=== PATIENT | female | born 2000 | race Caucasian/White ===

== ENCOUNTER 2023-07-04 07:09 | Emergency (ER) | payer OTHER ==
[2023-07-04 07:23] VITALS: TEMP 99.4
--- NOTE | 2023-07-04 07:51 | ERPHSYRPT ---
- History of Present Illness Time Seen by Provider: 07/04/23 07:35 Source: patient, family Patient Subjective Stated Complaint: Pt states "About three days ago I started to have rib pain and get a little short of breath. I have a hx of blood clots and I was taken off my xarelto a couple of months ago and I am afraid I might have another blood clot." Triage Nursing Assessment: Pt presented alert and oriented X 3, skin pwd. Pt ambulates with an upright steady gait, able to speak in clear full sentences. Pt resting comfortably on the bed. Physician History: This is a morbidly obese 23-year-old white female patient who was diagnosed with bilateral lower lobe pulmonary emboli and was placed on Xarelto. Per her report, they stopped the Xarelto in January or February 2023. They decided to restart it and then, secondary to vaginal bleeding with an IUD in place, they stopped the Xarelto again in May. Additional, independent history was provided by the patient's significant other. 3 days ago, patient began having mild shortness of air, cough and bilateral lower rib pain. These symptoms are similar to those symptoms that were present when she was diagnosed with a pulmonary embolus. She is concerned that the pulmonary emboli have recur red/returned. Patient has a history of hypertension, anxiety/depression, chronic anemia and pituitary tumor. Patient denies anterior chest pain. She has no abdominal pain. Patient's monitor rhythm is within normal limits and shows a pulse of 91 bpm. Her room air oxygen saturation level is 99%. Timing/Duration: day(s) (3) Cough Quality/Degree: mild (Nonproductive) Possible Cause: occasional episodes Modifying Factors: Improves With: coughing Associated Symptoms: cough, shortness of breath Allergies/Adverse Reactions: heparin Allergy (Severe, Verified 05/08/23 11:52) Anaphylactic Reaction vancomycin Allergy (Intermediate, Verified 05/08/23 11:52) Hives Home Medications: Ferrous Sulfate 325 mg [Feosol 325 mg] 325 mg PO HS 05/06/23 [History] Losartan/Hydrochlorothiazide [Hyzaar 50-12.5 Tablet] 1 each PO HS 05/06/23 [History] carvediloL [Coreg] 25 mg PO BID 05/06/23 [History] clonazePAM [Clonazepam] 1 mg PO BIDPRN PRN 05/06/23 [History] Aspirin 81 gm Chew [Baby Aspirin 81 mg Chew] 81 mg PO BID 07/04/23 [History] Hx Tetanus, Diphtheria Vaccination/Date Given: No Hx Influenza Vaccination/Date Given: No Hx Pneumococcal Vaccination/Date Given: No Immunizations Up to Date: No Travel Risk - International Travel Have you traveled outside of the country in past 3 weeks: No - Coronavirus Screening Are you exhibiting any of the following symptoms?: Yes Symptoms: Cough: New Onset Close contact with a COVID-19 positive Pt in past 14-21 Days: No - Vaccine Status Have you recieved a Covid-19 vaccination: Yes 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: [employer] - Vaccination Dates Date of 2cond Vaccination (if applicable): did not get - Review of Systems Constitutional: No Symptoms Eyes: No Symptoms Ears, Nose, & Throat: No Symptoms Respiratory: Cough, Dyspnea (Mild) Cardiac: No Symptoms Abdominal/Gastrointestinal: No Symptoms Genitourinary Symptoms: No Symptoms Musculoskeletal: No Symptoms Skin: No Symptoms Neurological: No Symptoms Psychological: No Symptoms Endocrine: No Symptoms Hematologic/Lymphatic: No Symptoms Immunological/Allergic: No Symptoms All Other Systems: Reviewed and Negative - Past Medical History Pertinent Past Medical History: Yes Neurological History: No Pertinent History ENT History: No Pertinent History Cardiac History: Hypertension, No Pertinent History Respiratory History: Pulmonary Embolism Endocrine Medical History: Other Musculoskeletal History: No Pertinent History, Other GI Medical History: No Pertinent History History: No Pertinent History Psycho-Social History: Depression, Anxiety Female Reproductive Disorders: Menstrual Problems, Abnormal Uterine Bleeding Other Medical History: been on period for 8 months, pituatary tumor, aris PE - Past Surgical History Past Surgical History: Yes Neuro Surgical History: No Pertinent History Cardiac: No Pertinent History Respiratory: No Pertinent History Gastrointestinal: No Pertinent History Genitourinary: No Pertinent History Musculoskeletal: No Pertinent History, Orthopedic Surgery Female Surgical History: No Pertinent History Other Surgical History: spinal fusion - Social History Smoking Status: Never smoker Exposure to second hand smoke: No Drug Use: none Patient Lives Alone: No - Female History Hx Last Menstrual Period: IUD Hx Now: No - Nursing Vital Signs Nursing Vital Signs: Initial Vital Signs Temperature 99.4 F 07/04/23 07:18 Pulse Rate 99 H 07/04/23 07:18 Respiratory Rate 07/04/23 07:18 Blood Pressure 169/109 11/22/23 07:18 O2 Sat by Pulse Oximetry 99 07/04/23 07:18 Pain Scale Pain Intensity 0 - Physical Exam General Appearance: no apparent distress, alert, anxiety, obese Eye Exam: PERRL/EOMI Ears, Nose, Throat Exam: normal ENT inspection, moist mucous membranes Neck Exam: normal inspection, non-tender, supple, full range of motion Respiratory Exam: normal breath sounds, lungs clear, airway intact, No chest tenderness, No respiratory distress Cardiovascular Exam: regular rate/rhythm, normal heart sounds, normal peripheral pulses Gastrointestinal/Abdomen Exam: soft, normal bowel sounds, No tenderness Pelvic Exam: not done Rectal Exam: not done Back Exam: normal inspection, normal range of motion, No CVA tenderness, No vertebral tenderness Extremity Exam: normal inspection, normal range of motion, pelvis stable Neurologic Exam: alert, oriented x 3, cooperative, 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 assistant II-XII nml as tested, nml cerebellar function, nml station & gait, other (Patient is anxious) Skin Exam: normal color, warm, dry Lymphatic Exam: No adenopathy SpO2 Interpretation: normal SpO2: 99 O2 Delivery: Room Air - Course Nursing assessment & vital signs reviewed: Yes EKG Interpreted by Me: RATE (81), Sinus Rhythm, NORMAL AXIS, NORMAL INTERVALS, NORMAL QRS, NORMAL ST-T, Other (No acute ischemic changes on today's twelve-lead EKG) Ordered Tests: Active Orders 24 hr Category Date Time Status EKG-ER Only STAT Care 07/04/23 07:51 Active IV Insertion STAT Care 07/04/23 07:51 Active CHEST WITH CONTRAST [CT] Stat Exams 07/04/23 07:52 Completed CBC W DIFF Stat Lab 07/04/23 10:04 Completed CMP Stat Lab 07/04/23 10:04 Completed HCG QUALITATIVE, SERUM Stat Lab 07/04/23 10:04 Completed NT PRO BNPII Stat Lab 07/04/23 10:04 Completed PROTIME WITH INR Stat Lab 07/04/23 10:04 Completed TROPONIN Q4H Lab 07/04/23 10:04 Completed TROPONIN Q4H Lab 07/04/23 14:00 Ordered TROPONIN Q4H Lab 07/04/23 18:00 Ordered Medication Summary Discontinued Medications Generic Name Dose Route Start Last Admin Trade Name Freq PRN Reason Stop Dose Admin Sodium Chloride 500 mls @ 500 mls/hr 07/04/23 07:53 07/04/23 10:41 Sodium Chloride 0.9% 500 Ml IV 07/04/23 08:52 Infused .Q1H ONE Infusion Sodium Chloride Confirm 07/04/23 09:23 Sodium Chloride 0.9% 500 Ml Administered 07/04/23 09:24 Dose 500 mls @ ud IV .STK-MED ONE Lidocaine HCl Confirm 07/04/23 09:29 Lidocaine - Mpf 2% 5 Ml Vial Administered 07/04/23 09:30 Dose 5 ml .ROUTE .STK-MED ONE Lab/Rad Data: Laboratory Result Diagrams 07/04/23 10:04 07/04/23 10:04 Laboratory Results 07/04/23 07/04/23 07/04/23 Range/Units 10:04 10:04 10:04 WBC (4.0-10.5) x10^3/uL RBC (4.1-5.4) x10^6/uL Hgb (12.0-16.0) g/dL Hct (35-47) % MCV (78-100) fL MCH (26-32) pg MCHC (32-36) g/dL RDW (11.5-14.0) % Plt Count (150-450) x10^3/uL MPV (7.5-11.0) fL Gran % (36.0-66.0) % Immature Gran % (Auto) (0.00-0.4) % Nucleat RBC Rel Count (0.00-0.1) % Eos # (Auto) (0-0.5) x10^3/uL Immature Gran # (Auto) (0.00-0.03) x10^3u/L Absolute Lymphs (auto) (1.0-4.6) x10^3/uL Absolute Monos (auto) (0.0-1.3) x10^3/uL Absolute Nucleated RBC (0.00-0.01) x10^3u/L Lymphocytes % (24.0-44.0) % Monocytes % (0.0-12.0) % Eosinophils % (0.00-5.0) % Basophils % (0.0-0.4) % Absolute Granulocytes (1.4-6.9) x10^3/uL Basophils # (0-0.4) x10^3/uL PT 10.9 (9.4-12.5) SECONDS INR 1.00 (0.8-3.0) Sodium (137-145) mmol/L Potassium (3.5-5.1) mmol/L Chloride (98-107) mmol/L Carbon Dioxide (22-30) mmol/L Anion Gap (5-15) MEQ/L BUN (7-17) mg/dL Creatinine (0.52-1.04) mg/dL Estimated GFR ML/MIN Glucose (74-106) mg/dL Calcium (8.4-10.2) mg/dL Total Bilirubin (0.2-1.3) mg/dL AST (14-36) U/L ALT (0-35) U/L Alkaline Phosphatase (38-126) U/L Troponin I < 0.012 (0.000-0.034) ng/mL NT-Pro-B Natriuret Pep (<300) pg/mL Serum Total Protein (6.3-8.2) g/dL Albumin (3.5-5.0) g/dL Serum HCG, Qual NEGATIVE (NEGATIVE) Influenza Type A Ag (NEGATIVE) Influenza Type B Ag (NEGATIVE) RSV (PCR) (NEGATIVE) SARS-CoV-2 (PCR) (NEGATIVE) 07/04/23 07/04/23 07/04/23 Range/Units 10:04 10:04 08:15 WBC 11.9 H (4.0-10.5) x10^3/uL RBC 3.89 L (4.1-5.4) x10^6/uL Hgb 10.5 L (12.0-16.0) g/dL Hct 33.7 L (35-47) % MCV 86.6 (78-100) fL MCH 27.0 (26-32) pg MCHC 31.2 L (32-36) g/dL RDW 15.1 H (11.5-14.0) % Plt Count 333 (150-450) x10^3/uL MPV 8.5 (7.5-11.0) fL Gran % 71.6 H (36.0-66.0) % Immature Gran % (Auto) 0.3 (0.00-0.4) % Nucleat RBC Rel Count 0.0 (0.00-0.1) % Eos # (Auto) 0.19 (0-0.5) x10^3/uL Immature Gran # (Auto) 0.03 (0.00-0.03) x10^3u/L Absolute Lymphs (auto) 2.64 (1.0-4.6) x10^3/uL Absolute Monos (auto) 0.48 (0.0-1.3) x10^3/uL Absolute Nucleated RBC 0.00 (0.00-0.01) x10^3u/L Lymphocytes % 22.2 L (24.0-44.0) % Monocytes % 4.0 (0.0-12.0) % Eosinophils % 1.6 (0.00-5.0) % Basophils % 0.3 (0.0-0.4) % Absolute Granulocytes 8.53 H (1.4-6.9) x10^3/uL Basophils # 0.04 (0-0.4) x10^3/uL PT (9.4-12.5) SECONDS INR (0.8-3.0) Sodium 133 L (137-145) mmol/L Potassium 4.1 (3.5-5.1) mmol/L Chloride 104 (98-107) mmol/L Carbon Dioxide 21 L (22-30) mmol/L Anion Gap 12.4 (5-15) MEQ/L BUN 10 (7-17) mg/dL Creatinine 0.40 L (0.52-1.04) mg/dL Estimated GFR 141.7 ML/MIN Glucose 95 (74-106) mg/dL Calcium 8.9 (8.4-10.2) mg/dL Total Bilirubin 0.30 (0.2-1.3) mg/dL AST 30 (14-36) U/L ALT 36 H (0-35) U/L Alkaline Phosphatase 69 (38-126) U/L Troponin I (0.000-0.034) ng/mL NT-Pro-B Natriuret Pep 86.2 (<300) pg/mL Serum Total Protein 7.6 (6.3-8.2) g/dL Albumin 3.8 (3.5-5.0) g/dL Serum HCG, Qual (NEGATIVE) Influenza Type A Ag NEGATIVE (NEGATIVE) Influenza Type B Ag NEGATIVE (NEGATIVE) RSV (PCR) NEGATIVE (NEGATIVE) SARS-CoV-2 (PCR) NEGATIVE (NEGATIVE) - Progress Progress: re-examined Air Movement: good Progress Note: 07/04/23 08:39 This patient's medical issue is 1 of moderate complexity. The level complex in the workup performed based on review of the patient's past medical history, review of the patient's medication list, review of patient's drug allergy list, history of present illness and physical findings on examination. The workup in this patient includes placement of intravenous line, CBC, CMP, PT/INR, CT scan of the chest with contrast to evaluate for pulmonary embolus. We also performed a BNP and troponin level and twelve-lead EKG. 07/04/23 12:33 I reviewed and interpreted the patient's laboratory data results. There is no evidence of any acute, emergent findings. CT scan of the chest with contrast was interpreted by radiologist and I reviewed the impression. There is no evidence of any pulmonary embolus. This was comp ared to the last 3 CT scans of the chest that were done this year. There are no other acute cardiopulmonary processes. Patient was informed that she needs to be careful with the number of radiograph ic studies that she is exposed to. Counseled pt/family regarding: lab results, diagnosis, need for follow-up, rad results Medical Desision Making - Independent Historian Additional History obtained from: Relative/friend - Diagnostic Testing Diagnostic test were ordered, analyzed, and reviewed by me: Yes Radiological Interpretation: Reviewed by me, Teleradiologist Report - Risk of complications Minimal Risk: Minimal risk of morbidity - Departure Departure Disposition: Home Clinical Impression: Rib pain, Shortness of breath Condition: Stable Critical Care Time: No Referrals: MANUEL LEMUS PA [Primary Care Provider] - Follow up/PCP as directed Additional Instructions: Be aware that you have had a number of CAT scans of the chest within approximately 11 months. Follow-up with your primary care provider for further evaluation management. Continue all your medications as prescribed.
[2023-07-04] MEDS ORDERED: Sodium Chloride 0.9% 500 ML 500 ML IV ONE ×2 (07:53→09:23)
[2023-07-04 08:58] LABS: INFLUENZA A NEGATIVE (NEGATIVE); INFLUENZA B NEGATIVE (NEGATIVE); RESPIRATORY SYNCTIAL VIRUS NEGATIVE (NEGATIVE); SARS-CoV-2 Xpert Express NEGATIVE (NEGATIVE)
[2023-07-04] MEDS ORDERED: Xylocaine-Mpf 2% 5 Ml Vial ONE (09:29)
[2023-07-04 10:05] LABS: Absolute Neutrophil Ct (ANC) 8.53 x10^3/uL (1.4-6.9); BASOPHIL % 0.3 % (0.0-0.4); Basophil (Absolute #) 0.04 x10^3/uL (0-0.4); Eosinophil % 1.6 % (0.00-5.0); Eosinophil (Absolute #) 0.19 x10^3/uL (0-0.5); Hematocrit 33.7 % (35-47); Hemoglobin 10.5 g/dL (12.0-16.0); IMMATURE GRAN # 0.03 x10^3u/L (0.00-0.03); IMMATURE GRAN % 0.3 % (0.00-0.4); Lymphocyte (Absolute #) 2.64 x10^3/uL (1.0-4.6); Lymphocytes % 22.2 % (24.0-44.0); Mean Cell Volume 86.6 fL (78-100); Mean Corpuscular Hgb Concent. 31.2 g/dL (32-36); Mean Platelet Volume 8.5 fL (7.5-11.0); Monocyte (Absolute #) 0.48 x10^3/uL (0.0-1.3); Neutrophil % 71.6 % (36.0-66.0); Platelet Count 333 x10^3/uL (150-450); Red Blood Count 3.89 x10^6/uL (4.1-5.4); Red Cell Distribution Width 15.1 % (11.5-14.0); White Blood Count 11.9 x10^3/uL (4.0-10.5)
[2023-07-04 10:23] LABS: HCG SERUM TEST NEGATIVE (NEGATIVE); PROTIME 10.9 SECONDS (9.4-12.5)
[2023-07-04 10:34] LABS: ALBUMIN 3.8 g/dL (3.5-5.0); ANION GAP 12.4 MEQ/L (5-15); BILIRUBIN,TOTAL 0.3 mg/dL (0.2-1.3); Calcium 8.9 mg/dL (8.4-10.2); Creatinine 1 0.4 mg/dL (0.52-1.04); EST GLOMERULAR FILTRATION RATE 141.7 ML/MIN; NT PRO BNPII 86.2 pg/mL (<300); Potassium 4.1 mmol/L (3.5-5.1); Total Protein 7.6 g/dL (6.3-8.2)
[2023-07-04 12:04] VITALS: BP 129/80
--- NOTE | 2023-07-04 12:19 | XRAY ---
Indication: Cough. Chest pain. History PE. Multiple contiguous axial images obtained through the chest using 100 cc Isovue 370 contrast and PE protocol. Comparison: January 21, January 30, and May 06, 2023. Adequate opacification of the pulmonary arteries including lobar and segmental branches. No pulmonary embolus. Heart not enlarged. Aorta is normal in course and caliber. No pathologic mediastinal/hilar lymphadenopathy. Lungs demonstrates minimal dependent atelectasis. No suspicious pulmonary mass/nodule, infiltrate, effusion, or pneumothorax. Bony thorax intact. Limited upper abdomen again demonstrates fatty liver. Impression: No change compared to last 3 CT PE exams of this year. Continued negative pulmonary embolus. No new/acute cardiopulmonary abnormalities. Again incidental fatty liver.
[2023-07-04 13:02] VITALS: PULSE 93; RESP 24; O2SAT 96
== END 2023-07-04 13:08 | disposition home or self-care (01) ==
LOC: ED 07:09
DX: R07.81 Pleurodynia (principal); R06.02 Shortness of breath; R05.1 Acute cough; I10 Essential (primary) hypertension; Z79.899 Other long term (current) drug therapy; Z86.711 Personal history of pulmonary embolism
CPT/HCPCS: 0241U; 36415; 71260; 80053; 83880; 84484; 84703; 85025; 85610; 93005; 99284

== ENCOUNTER 2023-10-17 14:37 | Emergency (ER) | payer OTHER ==
--- NOTE | 2023-10-17 14:52 | ERPHSYRPT ---
- History of Present Illness Time Seen by Provider: 10/17/23 14:52 Historian: patient, family Exam Limitations: no limitations Patient Subjective Stated Complaint: chest pain and back pain between my shoulder blades Triage Nursing Assessment: Pt A&O X 3. Ambulated to room without difficulty. Respirations unlabored. Lung sounds clear throughout. Heart sounds regular S1 S2 present. Pt tearful. Physician History: This is a morbidly obese 23-year-old white female patient who presents with relatively acute onset of sharp stabbing chest pain that is localized in the center of her chest and radiates straight through to her back between her shoulder blades. Today, there were the same symptoms and associated left rib pa in. She was diagnosed with COVID in September 2023. She has a residual cough but no hemoptysis. Patient has no documented coronary artery disease. Patient has been diagnosed in the past with a pulmonary embolus and was on Xarelto for 3 years. However, she was having some genitourinary bleeding with menstruation and therefore her physician stopped the Xarelto per her report. Patient has a history of anxiety, hypertension and anemia Timing/Duration: yesterday Activities at Onset: none Quality: sharpness, stabbing Location: substernal, central Chest Pain Radiation: back Severity of Pain-Max: mild (To moderate) Severity of Pain-Current: mild (To moderate) Modifying Factors: Improves With: breathing Associated Symptoms: cough (Mild), hurts to breathe Prior Chest Pain/Cardiac Workup: pulmonary embolism Nitro Today/Relief: no nitro taken today Aspirin Treatment Today: 81 mg x 1, provided at home Allergies/Adverse Reactions: heparin Allergy (Severe, Verified 10/17/23 14:42) Anaphylactic Reaction vancomycin Allergy (Intermediate, Verified 10/17/23 14:42) Hives Home Medications: Ferrous Sulfate 325 mg [Feosol 325 mg] 325 mg PO HS 05/06/23 [History] Losartan/Hydrochlorothiazide [Hyzaar 50-12.5 Tablet] 1 each PO HS 05/06/23 [History] carvediloL [Coreg] 25 mg PO BID 05/06/23 [History] clonazePAM [Clonazepam] 1 mg PO BIDPRN PRN 05/06/23 [History] Aspirin 81 gm Chew [Baby Aspirin 81 mg Chew] 81 mg PO BID 07/04/23 [H istory] Hx Tetanus, Diphtheria Vaccination/Date Given: No Hx Influenza Vaccination/Date Given: No Hx Pneumococcal Vaccination/Date Given: No Travel Risk - International Travel Have you traveled outside of the country in past 3 weeks: No - Coronavirus Screening Are you exhibiting any of the following symptoms?: No Close contact with a COVID-19 positive Pt in past 14-21 Days: No - Vaccine Status Have you recieved a Covid-19 vaccination: Yes 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: [employer] - Vaccination Dates Date of 2cond Vaccination (if applicable): did not get - Review of Systems Constitutional: No Symptoms Eyes: No Symptoms Ears, Nose, & Throat: No Symptoms Respiratory: No Symptoms Cardiac: Chest Pain Abdominal/Gastrointestinal: No Symptoms Genitourinary Symptoms: No Symptoms Musculoskeletal: No Symptoms Skin: No Symptoms Neurological: No Symptoms Psychological: No Symptoms, Anxiety Endocrine: No Symptoms Hematologic/Lymphatic: No Symptoms Immunological/Allergic: No Symptoms All Other Systems: Reviewed and Negative - Past Medical History Pertinent Past Medical History: Yes Neurological History: No Pertinent History ENT History: No Pertinent History Cardiac History: Hypertension, No Pertinent History Respiratory History: Pulmonary Embolism Endocrine Medical History: Other Musculoskeletal History: No Pertinent History, Other GI Medical History: No Pertinent History History: No Pertinent History Psycho-Social History: Depression, Anxiety Female Reproductive Disorders: Menstrual Problems, Abnormal Uterine Bleeding Other Medical History: been on period for 8 months, pituatary tumor, aris PE - Past Surgical History Past Surgical History: Yes Neuro Surgical History: No Pertinent History Cardiac: No Pertinent History Respiratory: No Pertinent History Gastrointestinal: No Pertinent History Genitourinary: No Pertinent History Musculoskeletal: No Pertinent History, Orthopedic Surgery Female Surgical History: No Pertinent History Other Surgical History: spinal fusion - Social History Smoking Status: Never smoker Exposure to second hand smoke: No Drug Use: none Patient Lives Alone: No - Female History Hx Now: No - Nursing Vital Signs Nursing Vital Signs: Initial Vital Signs Pulse Rate 88 10/17/23 14:49 Respiratory Rate 25 H 10/17/23 14:49 Blood Pressure 135/97 10/17/23 14:49 O2 Sat by Pulse Oximetry 97 10/17/23 14:49 Pain Scale Pain Intensity 3 - Physical Exam General Appearance: no apparent distress, alert, anxiety Eye Exam: PERRL/EOMI, eyes nml inspection Ears, Nose, Throat Exam: normal ENT inspection, moist mucous membranes Neck Exam: normal inspection, non-tender, supple, full range of motion Respiratory Exam: normal breath sounds, chest tenderness, lungs clear, respiratory distress, airway intact Cardiovascular Exam: regular rate/rhythm, normal heart sounds, normal peripheral pulses Gastrointestinal/Abdomen Exam: soft, normal bowel sounds, No tenderness Pelvic Exam: not done Rectal Exam: not done Back Exam: normal inspection, normal range of motion, No CVA tenderness, No vertebral tenderness Extremity Exam: normal inspection, normal range of motion, pelvis stable Neurologic Exam: alert, oriented x 3, cooperative, 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 nml as tested, nml cerebellar function, nml station & gait, sensation nml Skin Exam: normal color, warm, dry Lymphatic Exam: No adenopathy SpO2 Interpretation: normal O2 Delivery: Room Air - Course Nursing assessment & vital signs reviewed: Yes EKG Interpreted by Me: RATE ([id number]), Sinus Rhythm, NORMAL AXIS, NORMAL INTERVALS, NORMAL QRS, NORMAL ST-T, Other (No acute ischemic changes on today's twelve-lead EKG.) Ordered Tests: Active Orders 24 hr Category Date Time Status Bag Turner STAT Care 10/17/23 15:09 Active EKG-ER Only STAT Care 10/17/23 15:09 Active Pulse Oximetry (ED) STAT Care 10/17/23 15:09 Active CHEST WITH CONTRAST [CT] Stat Exams 10/17/23 15:29 Completed CBC W DIFF Stat Lab 10/17/23 15:09 Completed CMP Stat Lab 10/17/23 15:20 Completed D-DIMER QUANTITATIVE Stat Lab 10/17/23 15:20 Completed HCG QUALITATIVE, SERUM Stat Lab 10/17/23 15:20 Completed TROPONIN Q4H Lab 10/17/23 15:20 Completed TROPONIN Q4H Lab 10/17/23 19:15 Ordered TROPONIN Q4H Lab 10/17/23 23:15 Ordered Medication Summary Generic Name Dose Route Start Last Admin Trade Name Freq PRN Reason Stop Dose Admin Sodium Chloride 500 mls @ 500 mls/hr 10/17/23 15:59 10/17/23 16:12 Sodium Chloride 0.9% 500 Ml IV 10/17/23 16:58 500 mls/hr .Q1H ONE Administration Discontinued Medications Generic Name Dose Route Start Last Admin Trade Name Freq PRN Reason Stop Dose Admin Aspirin 324 mg 10/17/23 15:09 10/17/23 15:42 Aspirin 81 Mg Tab.Chew PO 10/17/23 15:10 324 mg STAT ONE Administration Aspirin Confirm 10/17/23 15:41 Aspirin 81 Mg Tab.Chew Administered 10/17/23 15:42 Dose 324 mg .ROUTE .STK-MED ONE Sodium Chloride Confirm 10/17/23 16:10 Sodium Chloride 0.9% 500 Ml Administered 10/17/23 16:11 Dose 500 mls @ ud IV .[employer]-MED ONE Lab/Rad Data: Laboratory Result Diagrams 10/17/23 15:09 10/17/23 15:20 Laboratory Results 10/17/23 10/17/23 10/17/23 Range/Units 15:20 15:20 15:20 WBC (4.0-10.5) x10^3/uL RBC (4.1-5.4) x10^6/uL Hgb (12.0-16.0) g/dL Hct (35-47) % MCV (78-100) fL MCH (26-32) pg MCHC (32-36) g/dL RDW (11.5-14.0) % Plt Count (150-450) x10^3/uL MPV (7.5-11.0) fL Gran % (36.0-66.0) % Immature Gran % (Auto) (0.00-0.4) % Nucleat RBC Rel Count (0.00-0.1) % Eos # (Auto) (0-0.5) x10^3/uL Immature Gran # (Auto) (0.00-0.03) x10^3u/L Absolute Lymphs (auto) (1.0-4.6) x10^3/uL Absolute Monos (auto) (0.0-1.3) x10^3/uL Absolute Nucleated RBC (0.00-0.01) x10^3u/L Lymphocytes % (24.0-44.0) % Monocytes % (0.0-12.0) % Eosinophils % (0.00-5.0) % Basophils % (0.0-0.4) % Absolute Granulocytes (1.4-6.9) x10^3/uL Basophils # (0-0.4) x10^3/uL D-Dimer 0.22 (0.0-0.50) mg/L Sodium (135-145) mmol/L Potassium (3.5-5.1) mmol/L Chloride (98-107) mmol/L Carbon Dioxide (22-30) mmol/L Anion Gap (5-15) MEQ/L BUN (7-17) mg/dL Creatinine (0.52-1.04) mg/dL Estimated GFR ML/MIN Glucose (74-106) mg/dL Calcium (8.4-10.2) mg/dL Total Bilirubin (0.2-1.3) mg/dL AST (14-36) U/L ALT (0-35) U/L Alkaline Phosphatase (38-126) U/L Troponin I < 0.012 (0.000-0.034) ng/mL Serum Total Protein (6.3-8.2) g/dL Albumin (3.5-5.0) g/dL Serum HCG, Qual NEGATIVE (NEGATIVE) 10/17/23 10/17/23 Range/Units 15:20 15:09 WBC 11.5 H (4.0-10.5) x10^3/uL RBC 4.36 (4.1-5.4) x10^6/uL Hgb 11.6 L (12.0-16.0) g/dL Hct 37.1 (35-47) % MCV 85.1 (78-100) fL MCH 26.6 (26-32) pg MCHC 31.3 L (32-36) g/dL RDW 16.3 H (11.5-14.0) % Plt Count 333 (150-450) x10^3/uL MPV 8.7 (7.5-11.0) fL Gran % 62.5 (36.0-66.0) % Immature Gran % (Auto) 0.4 (0.00-0.4) % Nucleat RBC Rel Count 0.0 (0.00-0.1) % Eos # (Auto) 0.21 (0-0.5) x10^3/uL Immature Gran # (Auto) 0.05 H (0.00-0.03) x10^3u/L Absolute Lymphs (auto) 3.36 (1.0-4.6) x10^3/uL Absolute Monos (auto) 0.66 (0.0-1.3) x10^3/uL Absolute Nucleated RBC 0.00 (0.00-0.01) x10^3u/L Lymphocytes % 29.2 (24.0-44.0) % Monocytes % 5.7 (0.0-12.0) % Eosinophils % 1.8 (0.00-5.0) % Basophils % 0.4 (0.0-0.4) % Absolute Granulocytes 7.19 H (1.4-6.9) x10^3/uL Basophils # 0.05 (0-0.4) x10^3/uL D-Dimer (0.0-0.50) mg/L Sodium 138 (135-145) mmol/L Potassium 4.1 (3.5-5.1) mmol/L Chloride 101 (98-107) mmol/L Carbon Dioxide 30 (22-30) mmol/L Anion Gap 11.5 (5-15) MEQ/L BUN 16 (7-17) mg/dL Creatinine 0.60 (0.52-1.04) mg/dL Estimated GFR 128.5 ML/MIN Glucose 78 (74-106) mg/dL Calcium 9.1 (8.4-10.2) mg/dL Total Bilirubin 0.30 (0.2-1.3) mg/dL AST 32 (14-36) U/L ALT 41 H (0-35) U/L Alkaline Phosphatase 70 (38-126) U/L Troponin I (0.000-0.034) ng/mL Serum Total Protein 8.1 (6.3-8.2) g/dL Albumin 4.1 (3.5-5.0) g/dL Serum HCG, Qual (NEGATIVE) - Progress Progress: improved, re-examined Air Movement: good Progress Note: 10/17/23 15:58 This patient's medical issue is 1 of moderate complexity. The level of complexity and the workup performed is based on review of the patient's past medical history, review the patient's medication list, review of patient drug allergy list, history of present illness and physical findings on examination. The workup includes placement of intravenous line, infusion of normal saline solution, CBC, CMP, PT/INR, chest CT with contrast to evaluate for pulmonary embolism,. 10/17/23 16:56 I interpreted the patient's laboratory data results. The patient has no evidence for any acute, emergent medical issues. The CT scan of the chest with contrast was interpreted by the radiologist and I reviewed the impression. There is no evidence of any pulmonary embolus. There is no new or acute intrathoracic abnormality. This patient has had 4 CT scan of the chest with contrast within the last year to year and a half. However, patient does have a significant history of pulmonary embolus and is morbidly obese and is a set up for the possibility of recurrence. However, I will discuss with the patient about the number of CAT scans she has had in the amount of exposure to radiation from the CAT scans. I think we can safely follow the D-dimer levels since they have been normal with these last for normal CT scan of the chest with contrast. Blood Culture(s) Obtained: No Antibiotics given: No Counseled pt/family regarding: lab results, diagnosis, need for follow-up, rad results Medical Desision Making - Diagnostic Testing Diagnostic test were ordered, analyzed, and reviewed by me: Yes Radiological Interpretation: Reviewed by me, Teleradiologist Report - Risk of complications Low Risk: Low risk of morbidity from additional dx testing or treatment - Departure Departure Disposition: Home Clinical Impression: Nonspecific chest pain Condition: Stable Critical Care Time: No Referrals: MANUEL LEMUS PA [Primary Care Provider] - Follow up/PCP as directed Additional Instructions: Continue daily aspirin. Take your medication as prescribed. Call your primary care provider tomorrow, 10/18/2023 to make arranges for further evaluation management within the next 3 to 5 days.
[2023-10-17 15:22] LABS: Absolute Neutrophil Ct (ANC) 7.19 x10^3/uL (1.4-6.9); BASOPHIL % 0.4 % (0.0-0.4); Basophil (Absolute #) 0.05 x10^3/uL (0-0.4); Eosinophil % 1.8 % (0.00-5.0); Eosinophil (Absolute #) 0.21 x10^3/uL (0-0.5); Hematocrit 37.1 % (35-47); Hemoglobin 11.6 g/dL (12.0-16.0); IMMATURE GRAN # 0.05 x10^3u/L (0.00-0.03); IMMATURE GRAN % 0.4 % (0.00-0.4); Lymphocyte (Absolute #) 3.36 x10^3/uL (1.0-4.6); Lymphocytes % 29.2 % (24.0-44.0); Mean Cell Volume 85.1 fL (78-100); Mean Corpuscular Hemoglobin 26.6 pg (26-32); Mean Corpuscular Hgb Concent. 31.3 g/dL (32-36); Mean Platelet Volume 8.7 fL (7.5-11.0); Monocyte (Absolute #) 0.66 x10^3/uL (0.0-1.3); Monocytes % 5.7 % (0.0-12.0); Neutrophil % 62.5 % (36.0-66.0); Platelet Count 333 x10^3/uL (150-450); Red Blood Count 4.36 x10^6/uL (4.1-5.4); Red Cell Distribution Width 16.3 % (11.5-14.0); White Blood Count 11.5 x10^3/uL (4.0-10.5)
[2023-10-17 15:33] LABS: HCG SERUM TEST NEGATIVE (NEGATIVE)
[2023-10-17 15:38] LABS: ALBUMIN 4.1 g/dL (3.5-5.0); ANION GAP 11.5 MEQ/L (5-15); BILIRUBIN,TOTAL 0.3 mg/dL (0.2-1.3); Calcium 9.1 mg/dL (8.4-10.2); Creatinine 1 0.6 mg/dL (0.52-1.04); EST GLOMERULAR FILTRATION RATE 128.5 ML/MIN; Potassium 4.1 mmol/L (3.5-5.1); Total Protein 8.1 g/dL (6.3-8.2)
[2023-10-17] MEDS ORDERED: BABY ASPIRIN 81 MG CHEW ONE (15:41)
[2023-10-17] MEDS: BABY ASPIRIN 81 MG CHEW PO ONE (15:42)
[2023-10-17 16:06] VITALS: BP 126/82; PULSE 88; RESP 23; O2SAT 99
[2023-10-17] MEDS ORDERED: Sodium Chloride 0.9% 500 ML 500 ML IV ONE (16:10)
[2023-10-17] MEDS: Sodium Chloride 0.9% 500 ML 500 ML IV ONE (16:12)
--- NOTE | 2023-10-17 16:51 | XRAY ---
Indication: Chest and rib pain. Cough. Multiple contiguous axial images obtained through the chest using 100 cc Isovue 370 contrast and PE protocol. Comparison: January 21, January 30, May 06, and July 04, 2023. Adequate opacification of the pulmonary arteries including lobar and segmental branches. No pulmonary embolus. Heart not enlarged. Aorta is normal in course and caliber. No pathologic mediastinal/hilar lymphadenopathy. Lungs inflated with minimal left lower lobe subsegmental atelectasis/scarring. No suspicious pulmonary mass/nodule, infiltrate, effusion, or pneumothorax. Bony thorax intact. Limited upper abdomen again demonstrates fatty liver. Impression: No change compared to last 4 CT PE exams. Continued negative pulmonary embolus. No new/acute cardiopulmonary abnormalities. Again incidental fatty liver.
== END 2023-10-17 17:25 | disposition home or self-care (01) ==
LOC: ED 14:37
DX: R07.9 Chest pain, unspecified (principal); E66.9 Obesity, unspecified; I10 Essential (primary) hypertension; F41.9 Anxiety disorder, unspecified; Z86.16 Personal history of COVID-19; Z79.899 Other long term (current) drug therapy; Z20.828 Contact with and (suspected) exposure to other viral communicable diseases; Z86.711 Personal history of pulmonary embolism
CPT/HCPCS: 36415; 71260; 80053; 84484; 84703; 85025; 85379; 93005; 93041; 94760; 99284; A9270-GY

== ENCOUNTER 2024-10-22 08:50 | Emergency (ER) | payer BC ==
[2024-10-22 09:09] VITALS: TEMP 98.1
[2024-10-22 10:01] LABS: Absolute Neutrophil Ct (ANC) 7.07 x10^3/uL (1.56-6.13); BASOPHIL % 0.3 % (0.1-1.2); Basophil (Absolute #) 0.03 x10^3/uL (0.01-0.08); Eosinophil % 1.4 % (0.7-5.8); Eosinophil (Absolute #) 0.15 x10^3/uL (0.04-0.36); Hemoglobin 12.2 g/dL (11.2-15.7); IMMATURE GRAN # 0.04 x10^3u/L (0.001-0.031); IMMATURE GRAN % 0.4 % (0.001-0.429); Lymphocyte (Absolute #) 2.77 x10^3/uL (1.18-3.74); Lymphocytes % 26.4 % (19.3-51.7); Mean Cell Volume 91.1 fL (79.4-94.8); Mean Corpuscular Hemoglobin 28.5 pg (25.6-32.2); Mean Corpuscular Hgb Concent. 31.3 g/dL (32.2-35.5); Mean Platelet Volume 8.7 fL (9.4-12.3); Monocyte (Absolute #) 0.43 x10^3/uL (0.24-0.86); Monocytes % 4.1 % (4.7-12.5); Neutrophil % 67.4 % (34.0-71.1); Platelet Count 297 x10^3/uL (182-369); Red Blood Count 4.28 x10^6/uL (3.93-5.22); Red Cell Distribution Width 14.3 % (11.7-14.4); White Blood Count 10.5 x10^3/uL (3.98-10.04)
[2024-10-22 10:10] VITALS: BP 142/98; PULSE 95; RESP 18; O2SAT 98
--- NOTE | 2024-10-22 10:13 | ERPHSYRPT ---
- History of Present Illness Time Seen by Provider: 10/22/24 09:00 Source: patient, family Exam Limitations: no limitations Patient Subjective Stated Complaint: rectal bleeding with BM since last night. 1 episode last night, 1 episode this morning. Triage Nursing Assessment: Pt arrives to ER bed 5 A &OX3, ambulatory. C/o rectal bleeding with BM. States happened once last night and once this morning. Also had 1 BM this morning without bleeding. Denies abdominal pain. Abdomen soft. Skin PWD. Pt reports she has been on augmentin for the flu x 1 week and has had diarrhea since day 2 of augmentin. States only bleeds with BM's. Blood when wiping and some drips into the toilet. Denies passing clots. VSS on RA. Physician History: 24-year-old morbidly obese female with a history of pulmonary embolism not anticoagulated on aspirin, recent flu and otitis media currently on Augmentin for the last 6 days presented in the ER with chief complaint of rectal bleeding bright red x 2 since last night. Patient reports she is having diarrhea for the last 5 days multiple episodes of loose stool and last night she noticed some bright red blood. She had a normal bowel movement this morning but again had a bowel movement with some blood in it. Bright red with no clots. Denies any history of hemorrhoids. Not taking any blood thinners. No abdominal pain, nausea or vomiting. No history of GI bleed. No chest pain palpitations or shortness of breath. No feeling of dizziness or lightheadedness. Allergies/Adverse Reactions: heparin Allergy (Severe, Verified 10/17/23 14:42) Anaphylactic Reaction vancomycin Allergy (Intermediate, Verified 10/17/23 14:42) Hives Home Medications: Ferrous Sulfate 325 mg [Feosol 325 mg] 325 mg PO HS 05/06/23 [History] Losartan/Hydrochlorothiazide [Hyzaar 50-12.5 Tablet] 1 each PO HS 05/06/23 [History] carvediloL [Coreg] 25 mg PO BID 05/06/23 [History] clonazePAM [Clonazepam] 1 mg PO BIDPRN PRN 05/06/23 [History] Aspirin 81 gm Chew [Baby Aspirin 81 mg Chew] 81 mg PO BID 07/04/23 [History] Hx Tetanus, Diphtheria Vaccination/Date Given: No Hx Influenza Vaccination/Date Given: No Hx Pneumococcal Vaccination/Date Given: No Travel Risk - International Travel Have you traveled outside of the country in past 3 weeks: No - Emerging Infectious Disease Are you exhibiting symptoms associated with any current EIDs: No - Review of Systems Constitutional: No Symptoms Ears, Nose, & Throat: No Symptoms Respiratory: No Symptoms Cardiac: No Symptoms Abdominal/Gastrointestinal: Hematochezia Genitourinary Symptoms: No Symptoms Skin: No Symptoms Neurological: No Symptoms Endocrine: No Symptoms Hematologic/Lymphatic: No Symptoms Immunological/Allergic: No Symptoms - Past Medical History Pertinent Past Medical History: Yes Neurological History: No Pertinent History ENT History: No Pertinent History Cardiac History: Hypertension, No Pertinent History Respiratory History: Pulmonary Embolism Endocrine Medical History: Other Musculoskeletal History: No Pertinent History, Other GI Medical History: No Pertinent History History: No Pertinent History Psycho-Social History: Depression, Anxiety Female Reproductive Disorders: Menstrual Problems, Abnormal Uterine Bleeding Other Medical History: been on period for 8 months, pituatary tumor, aris PE - Past Surgical History Past Surgical History: Yes Neuro Surgical History: No Pertinent History Cardiac: No Pertinent History Respiratory: No Pertinent History Gastrointestinal: No Pertinent History Genitourinary: No Pertinent History Musculoskeletal: No Pertinent History, Orthopedic Surgery Female Surgical History: No Pertinent History Other Surgical History: spinal fusion - Female History Hx Now: No - Social History Smoking Status: Never smoker Exposure to second hand smoke: No Drug Use: none - Social Determinants of Health Will the patient participate in the screening: Yes Do you worry about a steady place to live?: No Do you have any problems with any of the following?: No known problems In the past 12 months,have you had to go without utilities?: No Transportation Issues: No Has anyone in your support network made you feel unsafe?: No Have you or anyone in your house had to go w/o enough food: No - Nursing Vital Signs Nursing Vital Signs: Initial Vital Signs Temperature 98.1 F 10/22/24 09:01 Pulse Rate 106 H 10/22/24 09:01 Respiratory Rate 14 10/22/24 09:01 Blood Pressure 163/106 10/22/24 09:01 O2 Sat by Pulse Oximetry 98 10/22/24 09:01 Pain Scale Pain Intensity 0 - Physical Exam General Appearance: no apparent distress Eye Exam: PERRL/EOMI Ears, Nose, Throat Exam: normal ENT inspection, pharynx normal Neck Exam: normal inspection, full range of motion Respiratory Exam: normal breath sounds, lungs clear Cardiovascular Exam: regular rate/rhythm, normal heart sounds Gastrointestinal/Abdomen Exam: soft, normal bowel sounds, No tenderness Rectal Exam: normal exam, No hemorrhoids Back Exam: normal inspection, normal range of motion Extremity Exam: normal inspection, normal range of motion Neurologic Exam: alert, oriented x 3, cooperative Skin Exam: normal color SpO2 Interpretation: normal SpO2: 98 O2 Delivery: Room Air Ordered Tests: Active Orders 24 hr Category Date Time Status CBC W DIFF Stat Lab 10/22/24 09:48 Completed CMP Stat Lab 10/22/24 09:48 Completed HCG QUALITATIVE, SERUM Stat Lab 10/22/24 09:48 Results OB-FECAL SCREEN Stat Lab 10/22/24 09:48 Results UA W/RFX UR CULTURE Stat Lab 10/22/24 10:09 Completed Lab/Rad Data: Laboratory Result Diagrams 10/22/24 09:48 10/22/24 09:48 Laboratory Results 10/22/24 10/22/24 10/22/24 Range/Units 10:09 09:48 09:48 WBC (3.98-10.04) x10^3/uL RBC (3.93-5.22) x10^6/uL Hgb (11.2-15.7) g/dL Hct (34.1-44.9) % MCV (79.4-94.8) fL MCH (25.6-32.2) pg MCHC (32.2-35.5) g/dL RDW (11.7-14.4) % Plt Count (182-369) x10^3/uL MPV (9.4-12.3) fL Gran % (34.0-71.1) % Immature Gran % (Auto) (0.001-0.429) % Nucleat RBC Rel Count (0.00-0.2) % Eos # (Auto) (0.04-0.36) x10^3/uL Immature Gran # (Auto) (0.001-0.031) x10^3u/L Absolute Lymphs (auto) (1.18-3.74) x10^3/uL Absolute Monos (auto) (0.24-0.86) x10^3/uL Absolute Nucleated RBC (0.00-0.012) x10^3u/L Lymphocytes % (19.3-51.7) % Monocytes % (4.7-12.5) % Eosinophils % (0.7-5.8) % Basophils % (0.1-1.2) % Absolute Granulocytes (1.56-6.13) x10^3/uL Basophils # (0.01-0.08) x10^3/uL Sodium 139 (135-145) mmol/L Potassium 4.4 (3.5-5.1) mmol/L Chloride 100 (98-107) mmol/L Carbon Dioxide 29 (22-30) mmol/L Anion Gap 14.8 (5-15) MEQ/L BUN 11 (7-17) mg/dL Creatinine 0.50 L (0.52-1.04) mg/dL Estimated GFR 133.4 ML/MIN Glucose 92 (74-106) mg/dL Calcium 8.9 (8.4-10.2) mg/dL Total Bilirubin 0.50 (0.2-1.3) mg/dL AST 36 (14-36) U/L ALT 46 H (0-35) U/L Alkaline Phosphatase 77 (38-126) U/L Serum Total Protein 8.1 (6.3-8.2) g/dL Albumin 4.3 (3.5-5.0) g/dL Serum HCG, Qual NEGATIVE (NEGATIVE) Urine Color Yellow (Yellow) Urine Appearance Clear (Clear) Urine pH 5.5 (4.6-8.0) Ur Specific Ferris 1.010 (1.005-1.030) Urine Protein Negative (Negative) Urine Glucose (UA) Negative (Negative) mg/dL Urine Ketones Negative (Negative) Urine Blood Negative (Negative) Urine Nitrite Negative (Negative) Urine Bilirubin Negative (Negative) Urine Urobilinogen 0.2 (0.2) mg/dL Ur Leukocyte Esterase Negative (Negative) U Hyaline Cast (Auto) NONE SEEN (0-2) /LPF Urine Microscopic RBC 0-2 (0-5) /HPF Urine Microscopic WBC 0-2 (0-5) /HPF Ur Epithelial Cells None Seen (None Seen) /HPF Urine Bacteria None Seen (None Seen) /HPF Urine Culture Reflexed NO (NO) Stl Occult Blood (IFOB) Pending 10/22/24 Range/Units 09:48 WBC 10.5 H (3.98-10.04) x10^3/uL RBC 4.28 (3.93-5.22) x10^6/uL Hgb 12.2 (11.2-15.7) g/dL Hct 39.0 (34.1-44.9) % MCV 91.1 (79.4-94.8) fL MCH 28.5 (25.6-32.2) pg MCHC 31.3 L (32.2-35.5) g/dL RDW 14.3 (11.7-14.4) % Plt Count 297 (182-369) x10^3/uL MPV 8.7 L (9.4-12.3) fL Gran % 67.4 (34.0-71.1) % Immature Gran % (Auto) 0.4 (0.001-0.429) % Nucleat RBC Rel Count 0.0 (0.00-0.2) % Eos # (Auto) 0.15 (0.04-0.36) x10^3/uL Immature Gran # (Auto) 0.04 H (0.001-0.031) x10^3u/L Absolute Lymphs (auto) 2.77 (1.18-3.74) x10^3/uL Absolute Monos (auto) 0.43 (0.24-0.86) x10^3/uL Absolute Nucleated RBC 0.00 (0.00-0.012) x10^3u/L Lymphocytes % 26.4 (19.3-51.7) % Monocytes % 4.1 L (4.7-12.5) % Eosinophils % 1.4 (0.7-5.8) % Basophils % 0.3 (0.1-1.2) % Absolute Granulocytes 7.07 H (1.56-6.13) x10^3/uL Basophils # 0.03 (0.01-0.08) x10^3/uL Sodium (135-145) mmol/L Potassium (3.5-5.1) mmol/L Chloride (98-107) mmol/L Carbon Dioxide (22-30) mmol/L Anion Gap (5-15) MEQ/L BUN (7-17) mg/dL Creatinine (0.52-1.04) mg/dL Estimated GFR ML/MIN Glucose (74-106) mg/dL Calcium (8.4-10.2) mg/dL Total Bilirubin (0.2-1.3) mg/dL AST (14-36) U/L ALT (0-35) U/L Alkaline Phosphatase (38-126) U/L Serum Total Protein (6.3-8.2) g/dL Albumin (3.5-5.0) g/dL Serum HCG, Qual (NEGATIVE) Urine Color (Yellow) Urine Appearance (Clear) Urine pH (4.6-8.0) Ur Specific Ferris (1.005-1.030) Urine Protein (Negative) Urine Glucose (UA) (Negative) mg/dL Urine Ketones (Negative) Urine Blood (Negative) Urine Nitrite (Negative) Urine Bilirubin (Negative) Urine Urobilinogen (0.2) mg/dL Ur Leukocyte Esterase (Negative) U Hyaline Cast (Auto) (0-2) /LPF Urine Microscopic RBC (0-5) /HPF Urine Microscopic WBC (0-5) /HPF Ur Epithelial Cells (None Seen) /HPF Urine Bacteria (None Seen) /HPF Urine Culture Reflexed (NO) Stl Occult Blood (IFOB) - Progress Progress Note: 10/22/24 11:39 24-year-old is evaluated in the ER for rectal bleeding bright red. Patient has recent diarrhea from Augmentin for otitis media. She has mild increased rectal tone but I did not appreciate any hemorrhoids and no bloodstained stool. Abdominal exam is soft nontender with normoactive bowel sounds. She has normal white count and hemoglobin of 12 which is a little above her baseline. Chemistries unremarkable, no UTI, I have ordered stool occult and C. difficile but patient could not give us a sample. Patient is not in any distress, with increased rectal tone she could possibly have a small fissure, recommended to avoid constipation. Discussed signs symptoms of worsening needing return to ER which she seems understanding. She is advised to have outpatient follow-up with primary care and may need a colonoscopy if it continues to have bleeding again. Counseled pt/family regarding: lab results, diagnosis, need for follow-up Medical Desision Making - Independent Historian Additional History obtained from: Spouse - Diagnostic Testing Diagnostic test were ordered, analyzed, and reviewed by me: Yes - Risk of complications Low Risk: Low risk of morbidity from additional dx testing or treatment - Departure Departure Disposition: Home Clinical Impression: Rectal bleed, Diarrhea Condition: Stable Critical Care Time: No Referrals: MANUEL LEMUS PA [Primary Care Provider] - Follow up with PCP 1 day Instructions: Gastrointestinal Bleeding (DC) Additional Instructions: Follow-up with primary care for reevaluation. May need to have colonoscopy if it continues to have bleeding. Return to ER for any worsening.
[2024-10-22 10:14] LABS: HCG SERUM TEST NEGATIVE (NEGATIVE)
[2024-10-22 10:15] LABS: ALBUMIN 4.3 g/dL (3.5-5.0); ANION GAP 14.8 MEQ/L (5-15); BILIRUBIN,TOTAL 0.5 mg/dL (0.2-1.3); Calcium 8.9 mg/dL (8.4-10.2); Creatinine 1 0.5 mg/dL (0.52-1.04); EST GLOMERULAR FILTRATION RATE 133.4 ML/MIN; Potassium 4.4 mmol/L (3.5-5.1); Total Protein 8.1 g/dL (6.3-8.2)
[2024-10-22 10:52] LABS: Appearance Clear (Clear); Bacteria None Seen /HPF (None Seen); Bilirubin Negative (Negative); Blood Negative (Negative); Epithelial Cells None Seen /HPF (None Seen); Glucose, Urine Negative (Negative); Hyaline Casts NONE SEEN /LPF (0-2); Ketones Negative (Negative); Leukocyte Esterase Negative (Negative); Nitrite Negative (Negative); Ph 5.5 (4.6-8.0); Protein,Urine Dip Negative (Negative); RBC 0-2 /HPF (0-5); Urobilinogen 0.2 mg/dL (0.2); WBC 0-2 /HPF (0-5)
== END 2024-10-22 11:52 | disposition home or self-care (01) ==
LOC: ED 08:50
DX: K62.5 Hemorrhage of anus and rectum (principal); R19.7 Diarrhea, unspecified; I10 Essential (primary) hypertension; Z79.899 Other long term (current) drug therapy
CPT/HCPCS: 36415; 80053; 81001; 84703; 85025; 99283